=== PATIENT | male | born 1970 | race Caucasian/White ===

== ENCOUNTER 2017-05-10 10:50 | Emergency (ER) | payer MEDICAID, OTHER ==
[2017-05-10 11:20] VITALS: RESP 18; TEMP 98.9
--- NOTE | 2017-05-10 13:31 | RAD ---
PROCEDURE: Radiographs of the left elbow. HISTORY: pain COMPARISON: No prior. FINDINGS: BONES: Normal. No fracture. JOINTS: Multiple osteophytes and bony fragments are seen around the elbow joint SOFT TISSUES: Normal. JOINT EFFUSION: None. OTHER FINDINGS: None IMPRESSION: Multiple osteophytes and bony fragments are seen around the elbow joint
--- NOTE | 2017-05-10 13:34 | ED PDOC ---
Arrival/HPI - General Chief Complaint: Pain, Chronic Time Seen by Provider: 05/10/17 10:53 Historian: Patient - History of Present Illness Narrative History of Present Illness (Text): 05/10/17 13:37 A 46 year old male presents to the emergency department with 2-3 year duration of pain to the medial aspect of the left elbow. He states that the pain becomes worse with movement. The patient notes that he never had any medical evaluation for the pain. He also complains of a non tender mass by the right clavicle proximal to the sternum. He denies fevers, chills, headache, dizziness, weight loss, recent travel, abdominal pain,nausea, vomiting, diarrhea, trauma/injury, shortness of breath, chest pain, erythema, urticaria, sore throat or any other complaint. Patient does add that he saw his PMD 1 month ago and had a normal checkup with full blood work done which was within normal limits. PMD: Dr. Morrow Time/Duration: Other (2-3 years) Symptom Onset: Sudden Symptom Course: Unchanged Activities at Onset: Rest, Light Context: Home Past Medical History - Provider Review Nursing Documentation Reviewed: Yes - Cardiac Hx Cardiac Disorders: No - Pulmonary Hx Respiratory Disorders: No - Neurological Hx Neurological Disorder: No - HEENT Hx HEENT Disorder: No - Renal Hx Renal Disorder: No - Endocrine/Metabolic Hx Diabetes Mellitus Type 2: Yes - Hematological/Oncological Hx Blood Disorders: No - Integumentary Hx Dermatological Disorder: No - Gastrointestinal Hx Gastrointestinal Disorders: No - Genitourinary/Gynecological Hx Genitourinary Disorders: No - Psychiatric Hx Psychophysiologic Disorder: No Hx Substance Use: Yes (thc) Family/Social History - Physician Review Nursing Documentation Reviewed: Yes Family/Social History: No Known Family HX Smoking Status: cigars Hx Alcohol Use: No Hx Substance Use: Yes (thc) Allergies/Home Meds Allergies/Adverse Reactions: Allergies No Known Allergies Allergy (Verified 05/10/17 11:42) Home Medications: Home Meds Medication Instructions Recorded Confirmed metFORMIN [glucOPHAGE] 500 mg PO BID 05/10/17 05/10/17 Review of Systems - Physician Review All systems were reviewed & negative as marked: Yes - Review of Systems Constitutional: absent: Weight Change, Fevers, Night Sweats ENT: absent: Sore Throat Respiratory: absent: SOB, Cough Cardiovascular: absent: Chest Pain Gastrointestinal: absent: Abdominal Pain, Diarrhea, Nausea, Vomiting Musculoskeletal: Other (pain to the radial aspect of the left elbow) Skin: Other (non tender mass y medial aspect) Neurological: absent: Headache, Dizziness Physical Exam Vital Signs Reviewed: Yes Vital Signs Temp Pulse Resp BP Pulse Ox 05/10/17 13:40 68 18 121/74 99 05/10/17 12:26 71 18 118/79 98 05/10/17 11:12 98.9 F 76 18 120/86 98 Temperature: Afebrile Blood Pressure: Normal Pulse: Regular Respiratory Rate: Normal Appearance: Positive for: Well-Appearing Pain Distress: None Mental Status: Positive for: Alert and Oriented X 3 - Systems Exam Head: Present: Atraumatic, Normocephalic Pupils: Present: PERRL Extroacular Muscles: Present: EOMI Conjunctiva: Present: Normal Mouth: Present: Moist Mucous Membranes Neck: Present: Other ( non-tender soft mobile 1 cm mass to right clavicle proximal to the sternum) Respiratory/Chest: Present: Clear to Auscultation, Good Air Exchange. No: Respiratory Distress, Accessory Muscle Use Cardiovascular: Present: Regular Rate and Rhythm, Normal S1, S2. No: Murmurs Abdomen: Present: Normal Bowel Sounds. No: Tenderness, Distention, Peritoneal Signs Back: Present: Normal Inspection Upper Extremity: Present: Other (elbow tenderness to radial aspect. Increase in pain with ROM.) Lower Extremity: Present: Normal Inspection. No: Edema Neurological: Present: GCS=15, CN II-XII Intact, Speech Normal Skin: No: Erythematous, Other (no urticaria) Psychiatric: Present: Alert, Oriented x 3, Normal Insight, Normal Concentration Medical Decision Making ED Course and Treatment: 05/10/17 13:31 Impression: A 46 year old male with 2-3 year duration elbow pain, worsening with movement. Also, complains a 1cm mass on proximal aspect of left clavicle. Plan: -- Left Elbow X-Ray -- Reassess and disposition Progress Notes: XR L elbow : moderate to severe djd with calcifications noted, as read by PA Patient advised that official radiology read of XR is still pending and will call the patient if there is any discrepancy within 24 hours. X-ray results discussed with the patient in great detail. Patient notified of likely diagnosis of arthritis and tendinitis to the left elbow joint. Patient strongly advised to follow-up with orthopedic referral provided. Patient also advised to follow up with his PMD within a week regarding the lymphadenopathy to the right clavicle. Patient states he fully agrees with and understands discharge instructions. States that he agrees with the plan and disposition. Verbalized and repeated discharge instructions and plan. I have given the patient opportunity to ask any additional questions. - RAD Interpretation Radiology Orders: 05/10/17 12:03 ELBOW LEFT 3 VIEWS ROUTINE [RAD] Stat - PA / HARNESS RIGGER / Resident Statement MD/DO has reviewed & agrees with the documentation as recorded. - Scribe Statement The provider has reviewed the documentation as recorded by the Bibibe Larisa Ashton Provider Scribe Attestation: All medical record entries made by the Scribe were at my direction and personally dictated by me. I have reviewed the chart and agree that the record accurately reflects my personal performance of the history, physical exam, medical decision making, and the department course for this patient. I have also personally directed, reviewed, and agree with the discharge instructions and disposition. Disposition/Present on Arrival - Present on Arrival Any Indicators Present on Arrival: No History of DVT/PE: No History of Uncontrolled Diabetes: No Urinary Catheter: No History of Decub. Ulcer: No History Surgical Site Infection Following: None - Disposition Have Diagnosis and Disposition been Completed?: Yes Diagnosis: Elbow pain, left, Arthritis, Lymphadenopathy Disposition: HOME/ ROUTINE Disposition Time: 13:15 Patient Plan: Discharge Condition: STABLE Discharge Instructions (ExitCare): Lymphadenopathy (ED), Arthralgia (ED) Print Language: ROMANSH Additional Instructions: Thank you for letting us take care of you today. You were treated for L elbow pain, likely due to arthritis / tendonitis, lymphadenopathy. The emergency medical care you received today was directed at your acute symptoms. If you were prescribed any medication, please fill it and take as directed. It may take several days for your symptoms to resolve. Return to the Emergency Department if your symptoms worsen, do not improve, or if you have any other problems. Please contact your doctor in 2 days for re-evaluation and follow up / or call one of the physicians/clinics you have been referred to that are listed on the Patient Visit Information form that is included in your discharge packet. Bring any paperwork you were given at discharge with you along with any medications you are taking to your follow up visit. Our treatment cannot replace ongoing medical care by a primary care provider (PCP) outside of the emergency department. Thank you for allowing the [facility] team to be part of your care today. Prescriptions: Meloxicam [Mobic] 15 mg PO DAILY PRN #30 tab PRN Reason: Pain, Moderate (4-7) Referrals: PCP,NO [Primary Care Provider] - Follow up with primary John Dumont MD [Staff Provider] - Follow up with primary Forms: [employer] (Telugu)
[2017-05-10 13:41] VITALS: BP 121/74; PULSE 68; O2SAT 99
== END 2017-05-10 13:42 | disposition home or self-care (01) ==
LOC: ED 10:50
DX: R59.1 Generalized enlarged lymph nodes (principal); M13.822 Other specified arthritis, left elbow; M25.522 Pain in left elbow